=== PATIENT | female | born 1970 | race Caucasian/White ===

== ENCOUNTER 2018-12-03 12:55 | Emergency (ER) | payer BC ==
[~2018-12-03] VITALS: Wt 75.0 kg
[2018-12-03] MEDS ORDERED: NITROGLYCERIN (SL) 0.4 MG TAB SL PRN (14:00)
--- NOTE | 2018-12-03 14:20 | ERD ---
ER Documentation Chief Complaint Chief Complaint sudden onset chest pain while walking 30 min [employer]. relieved by ntg en route HPI 48-year-old female with no significant past medical history presenting with chest pain that started while she was at work. She was walking from her desk when she suddenly felt a tightness and pressure in the center of her chest that radiated all the way up into her neck. At that point she did have shortness of breath, felt dizzy, and was diaphoretic with nausea but no vomiting. She sat down and ambulance was called. She never lost consciousness. EMS gave her aspirin and nitroglycerin spray x3 with improvement of her symptoms. Patient states she has never had symptoms like this before. She does have a family history of cardiac disease but no personal history. No significant medical problems. Currently her chest pain is improved. Her last surgery was 2 months ago. No recent immobilization. No exogenous estrogen use. No history of known blood clotting disorders in her family. ROS All systems reviewed and are negative except as per history of present illness. Medications Home Meds No Active Prescriptions or Reported Meds Allergies Allergies: Coded Allergies: No Known Allergy (Unverified , 12/03/18) PMhx/Soc History of Surgery: Yes (Thyroid nodule removal, benign. Uterine mass removal and hysterectomy, benign.) Anesthesia Reaction: No Hx Neurological Disorder: No Hx Respiratory Disorders: No Hx Cardiac Disorders: No Hx Psychiatric Problems: No Hx Alcohol Use: No Hx Substance Use: No Smoking Status: Never smoker FmHx Family History: coronary disease (Mother had stroke and heart attack in her 30s. Father's side with cardiac disease as well.) Physical Exam Vitals Vital Signs Date Temp Pulse Resp B/P (MAP) Pulse Ox O2 O2 Flow FiO2 Time Delivery Rate 12/03/18 69 20 118/68 99 Room Air 15:56 (85) 12/03/18 Nasal 2 13:53 Cannula 12/03/18 98.0 77 18 120/60 98 13:03 (80) Physical Exam Const: No acute distress Head: Atraumatic Eyes: Normal Conjunctiva, PERRLA, EOMI ENT: Normal External Ears, Nose and Mouth. Neck: Full range of motion. No meningismus. No JVD Resp: Clear to auscultation bilaterally Cardio: Regular rate and rhythm, no murmurs, 2+ DP and PT pulses bilaterally. 2+ radial pulses bilaterally. Abd: Soft, non tender, non distended. Normal bowel sounds Skin: No petechiae or rashes Back: No midline or flank tenderness Ext: No cyanosis, or edema. No calf tenderness. Neur: Awake and alert, cranial nerves intact, normal speech. Strength and sensations intact in all 4 extremities. Psych: Normal Mood and Affect Result Diagram: 12/03/18 1357 12/03/18 1357 Results 24 hrs Laboratory Tests Test 12/03/18 13:57 12/03/18 16:30 White Blood Count 7.1 10^3/ul Red Blood Count 4.76 10^6/ul Hemoglobin 14.2 g/dl Hematocrit 43.0 % Mean Corpuscular Volume 90.3 fl Mean Corpuscular Hemoglobin 29.8 pg Mean Corpuscular Hemoglobin Concent 33.0 g/dl Red Cell Distribution Width 12.2 % Platelet Count 309 10^3/UL Mean Platelet Volume 9.4 fl Immature Granulocytes % 0.400 % Neutrophils % 51.9 % Lymphocytes % 41.4 % Monocytes % 5.2 % Eosinophils % 0.7 % Basophils % 0.4 % Nucleated Red Blood Cells % 0.0 /100WBC Immature Granulocytes # 0.030 10^3/ul Neutrophils # 3.7 10^3/ul Lymphocytes # 2.9 10^3/ul Monocytes # 0.4 10^3/ul Eosinophils # 0.1 10^3/ul Basophils # 0.0 10^3/ul Nucleated Red Blood Cells # 0.0 10^3/ul Sodium Level 143 mmol/L Potassium Level 4.0 mmol/L Chloride Level 104 mmol/L Carbon Dioxide Level 28 mmol/L Anion Gap 11 Blood Urea Nitrogen 11 mg/dl Creatinine 0.77 mg/dl Est Glomerular Filtrat Rate mL/min > 60 mL/min Glucose Level 89 mg/dl Calcium Level 9.8 mg/dl Troponin I < 0.012 ng/ml < 0.012 ng/ml Current Medications Medications Dose Sig/Alvin Start Time Status Last (Trade) Ordered Route PRN Stop Time Admin Dose Reason Admin 1 tab Q5M UP TO 3 12/03/18 Nitroglycerin DOSES PRN 14:00 SL .CHEST (Nitroglyceri PAIN n (Sl Tab) 0.4 Mg) Ketorolac 30 mg ONCE STAT 12/03/18 DC 12/03/18 Tromethamine IV 17:14 12/03/18 17:22 (Toradol) 17:15 Procedures/MDM EMERGENT LABS AND DIAGNOSTIC STUDIES: Lab Results above were reviewed and interpreted by me. CBC: no anemia or evidence of infection BMP: No evidence of electrolyte abnormality, renal failure, hypoglycemia Troponin within normal limits, not indicative of cardiac ischemia Repeat troponin @ 3 hours within normal limits EKG #1: Rate/Rhythm: Normal Sinus Rhythm QRS, ST, T-waves: No changes consistent w/ acute ischemia Impression: No evidence of ischemia or arrhythmia EKG #2: Rate/Rhythm: Normal Sinus Rhythm QRS, ST, T-waves: No changes consistent w/ acute ischemia Impression: No evidence of ischemia or arrhythmia Radiology Results as interpreted by Radiology below were reviewed by Matt Armenta MD: Chest x-ray shows no acute abnormalities Initial Nursing notes reviewed. Previous Medical Records requested via the Electronic Health Record. EMERGENCY DEPARTMENT COURSE / MEDICAL DECISION MAKING: The patient presents with chest pain. Vitals are stable. I considered pulmonary embolism, aortic dissection, pneumothorax among other diagnoses. Evaluation for acute coronary syndrome was performed. PERC score 0, low suspicion for PE. The HEART score was utilized for risk stratification and found to be 3. Repeat troponin @ 3 hours were unchanged. Based on this evaluation the patient's risk of major adverse cardiac events is <1%. Shared decision making occurred with patient and the decision has been made to discharge the patient for outpatient evaluation and functional study within 72 hours. Patient instructed to arrange follow up with PCP in the next 2 days and return to the ED for any new or worsening symptoms. Departure Diagnosis: Primary Impression: Chest pain Chest pain type: unspecified Qualified Codes: R07.9 - Chest pain, unspecified Condition: Stable ROBER ARMENTA MD Dec 03, 2018 14:20
[2018-12-03] MEDS ORDERED: KETOROLAC 30 MG INJ IV STA (17:14)
[2018-12-03 17:38] VITALS: BP 112/63; PULSE 68; RESP 18
== END 2018-12-03 17:41 | disposition home or self-care (01) ==
LOC: E/R 12:55
DX: R07.9 Chest pain, unspecified (principal)
CPT/HCPCS: 36415; 71045; 80048; 84484; 85025; 93005; 96374; 99285; J1885